=== PATIENT | female | born 1950 | race Hispanic/Latino ===

== ENCOUNTER 2018-06-12 06:10 | Observation (INO) | payer OTHER, MEDICARE ==
[2018-06-08 11:15] VITALS: BP 185/59
[2018-06-08 11:43] LABS: BASOPHILS % (AUTO) 0.6 % (0.0-5.0); EOSINOPHILS % (AUTO) 3.2 % (0.0-8.0); HEMATOCRIT 32.8 % (36-48); LYMPHOCYTES % (AUTO) 31.9 % (21.0-51.0); MEAN CORPUSCULAR HGB CONC 33.7 g/dL (32.0-36.0); MEAN CORPUSCULAR VOLUME 86.2 fL (79-99); NEUTROPHILS % (AUTO) 59.3 % (40.0-77.0); PLATELET COUNT (AUTO) 199 K/uL (130-400); RED CELL DISTRIBUTION WIDTH 13.5 % (11.0-15.5); WHITE BLOOD COUNT (AUTO) 7.3 K/uL (4.8-10.8)
[2018-06-08 11:59] LABS: INR 0.98 (0.85-1.15); PARTIAL THROMBOPLASTIN TIME 27.2 SEC (26.3-35.5); PROTHROMBIN TIME 10.3 SEC (9.6-11.6)
[2018-06-08 12:50] LABS: APPEARANCE,URINE Clear (CLEAR); BILIRUBIN,URINE Negative (NEGATIVE); COLOR,URINE Yellow (YELLOW); GLUCOSE, URINE (UA) Negative (NEGATIVE); KETONES,URINE Negative (NEGATIVE); LEUKOCYTE ESTERASE ,URINE Trace (NEGATIVE); NITRATE,URINE Negative (NEGATIVE); OCCULT BLOOD,URINE Trace (NEGATIVE); PH,URINE 5.5 (5.0-8.0); PROTEIN,URINE Negative (NEGATIVE); UROBILINOGEN,URINE 0.2 mg/dL (0.2-1.0)
[2018-06-08 13:35] LABS: BACTERIA,URINE Rare /HPF (None Seen); WBC,URINE 0-1 /HPF (0-1)
[2018-06-08 13:36] LABS: RBC,URINE 0-1 /HPF (0-1)
[~2018-06-12] VITALS: Ht 152.4 cm; Wt 68.0 kg
[2018-06-12] VITALS (8 sets, daily range): BP systolic 119–176; BP diastolic 58–89
[~2018-06-12 06:10] MED LIST: ASPI-1181 PO; ATOR20TA65 PO; FERR-82 PO; INSU100I29 SQ; INSU100V12 SQ; ISOS30TA6 PO; LISI-613 PO; METF-446 PO; METO-408 PO; MULT-1296 PO; NIAC500T22 PO; NITR0.4T50 SL; OMEGA 3 PO; OMEP20CA10 PO
[2018-06-12] MEDS ORDERED: SODIUM CHLORIDE 0.9% 1000ML 1,000 ML IV ONE (06:57)
[2018-06-12] MEDS ORDERED: ISOS30TA6 PO (07:43)
[2018-06-12] MEDS ORDERED: IOHEXOL-350 50ML VIAL IV ONE (13:52)
[2018-06-12] MEDS ORDERED: BIVALIRUDIN 250 MG/VIAL IV ONE (13:52)
[2018-06-12] MEDS ORDERED: IOHEXOL 350 MG/ML 100ML INFUS..BTL IV ONE (13:52)
[2018-06-12] MEDS ORDERED: LIDOCAINE HCL 2% 20ML ONE (13:52)
[2018-06-12] MEDS ORDERED: NITROGLYCERIN 5 MG/ML 10 ML VIAL IV ONE (14:02)
[2018-06-12] MEDS ORDERED: IOHEXOL-350 75 ML VIAL IV ONE (14:05)
[2018-06-12] MEDS ORDERED: MIDAZOLAM HCL 1 MG/ML 2ML VIAL ONE (14:32)
[2018-06-12] MEDS ORDERED: PRASUGREL HCL 10 MG TABLET ONE (15:32)
[2018-06-12] MEDS ORDERED: ASPIRIN 325MG EC TAB 325 MG TABLET.DR PO ONE (15:34)
[2018-06-12] MEDS ORDERED: ADENOSINE 3 MG/ML 2ML VIAL IV ONE (15:35)
[2018-06-12] MEDS ORDERED: LABETALOL 20 MG/4 ML DISP.SYRIN IV ONE (16:06)
[2018-06-12] MEDS ORDERED: DEXTROSE 50%-WATER 50 ML DISP.SYRIN IV PRN (16:15)
[2018-06-12] MEDS ORDERED: GLUCAGON 1MG KIT 1 MG ML IM PRN (16:15)
[2018-06-12] MEDS ORDERED: ACETAMINOPHEN 325 MG TAB PO PRN (16:15)
[2018-06-12] MEDS ORDERED: NITROGLYCERIN 0.4 MG SL TAB SL PRN (16:30)
--- NOTE | 2018-06-12 16:55 | NUR ---
PATIENT RECEIVED FROM [employer]CH[employer]IC S/P [facility]. PATIENT ALERT AWAKE AND ORIENTED X3. ORIENTED TO ROOM, BED PLACED TO LOWEST POSITION, CALL LIGHT PLACED WITHIN REACH. INSTRUCTED PATIENT ON LAYING FLAT TILL INSTRUCTED. FAMILY AT BEDSIDE. IV TO LEFT ARM PATENT, IV INFUSING. RIGHT GROIN SITE PERCLOSE DRY AND INTACT. NO S/S OF BLEEDING. FAMILY WITH NO QUESTIONS OR CONCERNS. PATIENT VS STABLE.
[2018-06-12] MEDS ORDERED: INSULIN GLARGINE 100 UNITS/ML 10 ML VIAL SQ SCH (18:00)
--- NOTE | 2018-06-12 19:45 | NUR ---
S/P LEFT HEART CATH. RT. GROIN SOFT WITHOUT BLEEDING OR HEMATOMA. PEDAL PULSES PALPABLE. BEDREST OVER AT 1999. REMINDED PATIENT NOT TO LIFT OR BEND RT LEG. PATIENT VERBALIZED UNDERSTANDING. CALL LIGHT WITHIN REACH.
[2018-06-12] MEDS ORDERED: SODIUM CHLORIDE 0.9% 1000ML 1,000 ML IV SCH (20:00)
--- NOTE | 2018-06-12 20:40 | NUR ---
BEDREST OVER. RT. GROIN SOFT WITHOUT BLEEDING OR HEMATOMA. PEDAL PULSES PALPABLE.
[2018-06-12] MEDS ORDERED: PHARMACY COMMUNICATION MISC SCH (21:00)
[2018-06-12] MEDS: INSULIN HUMULIN R 100 UNIT/ML 3ML SQ SCH ×2 (21:00→23:26)
[2018-06-12] MEDS ORDERED: ATORVASTATIN CALCIUM 10 MG TABLET PO SCH (21:00)
--- NOTE | 2018-06-12 22:15 | NUR ---
RT. CODIEIN STABLE. Addendum: 06/13/18 at 0151 by JERSEY KRUEGER RN RN PATIENT UP TO BATHROOM. NO DISTRESS NOTED.
--- NOTE | 2018-06-13 03:05 | NUR ---
RT. GROIN SOFT WITHOUT BLEEDING OR HEMATOMA. PEDAL PULSES PALPABLE.
[2018-06-13 03:41] LABS: HEMATOCRIT 30.7 % (36-48); MEAN CORPUSCULAR HEMOGLOBIN 29.6 pg (27.0-33.0); MEAN CORPUSCULAR HGB CONC 34.7 g/dL (32.0-36.0); MEAN CORPUSCULAR VOLUME 85.3 fL (79-99); PLATELET COUNT (AUTO) 173 K/uL (130-400); RED CELL DISTRIBUTION WIDTH 13.9 % (11.0-15.5); WHITE BLOOD COUNT (AUTO) 8.3 K/uL (4.8-10.8)
[2018-06-13 04:00] VITALS: BP 133/65
[2018-06-13 04:13] LABS: CREATININE 1.1 mg/dL (0.5-1.5); POTASSIUM 4.2 mmol/L (3.5-5.1)
[2018-06-13] MEDS: INSULIN HUMULIN R 100 UNIT/ML 3ML SQ SCH ×2 (06:28→11:30)
[2018-06-13 08:01] VITALS: BP 139/61
[2018-06-13] MEDS: INSULIN LISPRO 100 UNIT/ML 3ML SQ SCH ×2 (08:09→12:26)
[2018-06-13] MEDS ORDERED: PRAS10TA6 PO (08:24)
[2018-06-13] MEDS ORDERED: ASPIRIN 81 MG EC TAB PO SCH (09:00)
[2018-06-13] MEDS ORDERED: PANTOPRAZOLE SODIUM 40 MG TABLET.DR PO SCH (09:00)
[2018-06-13] MEDS ORDERED: FERROUS SULFATE 325 MG TABLET.DR PO SCH (09:00)
[2018-06-13] MEDS ORDERED: PRASUGREL HCL 10 MG TABLET PO SCH (09:00)
[2018-06-13] MEDS ORDERED: MULTIVITAMIN TABLET PO SCH (09:00)
[2018-06-13] MEDS ORDERED: LISINOPRIL 20 MG TABLET PO SCH (09:00)
[2018-06-13] MEDS ORDERED: Metoprolol Succinate 25 MG PO SCH (09:00)
[2018-06-13 11:56] VITALS: BP 148/70
== END 2018-06-13 12:40 | disposition home or self-care (01) ==
LOC: DAH 06:10 → DAHIP 06:11 → 2DH 16:53
PROVIDERS: ADMIT Internal Medicine Cardiovascular Disease; ATTEND Internal Medicine Cardiovascular Disease
DX: I25.10 Atherosclerotic heart disease of native coronary artery without angina pectoris (principal); E11.51 Type 2 diabetes mellitus with diabetic peripheral angiopathy without gangrene; B97.89 Other viral agents as the cause of diseases classified elsewhere; E78.2 Mixed hyperlipidemia; E66.9 Obesity, unspecified; I10 Essential (primary) hypertension; I25.2 Old myocardial infarction; I25.82 Chronic total occlusion of coronary artery; Z79.899 Other long term (current) drug therapy; Z79.01 Long term (current) use of anticoagulants
CPT/HCPCS: 36415 ×2; 71045; 80048 ×2; 81001; 82948 ×5; 85025; 85027; 85610; 85730; 93005; 93458; 96372 ×2; A4606; C1725; C1760; C1769 ×2; C1874; C1887; C1894; C9600; G0378 ×30; J0153; J0583; J1644; J1815; J2250; J3490 ×2; J7030; Q9965; Q9967 ×3; 99156; 99157